=== PATIENT | male | born 1965 | race Caucasian/White ===

== ENCOUNTER 2017-01-10 09:55 | Inpatient (IN) | payer OTHER ==
[~2017-01-10] VITALS: Ht 182.9 cm; Wt 72.2 kg
[~2017-01-10 09:55] MED LIST: ASPIRIN EC325 MG PO; AZITHROMYCIN500 M1 PO; BACTRIM,SEPT1 TABLET PO; CLINDAMYCIN HC300 MG PO; FOLIC ACID0.4 MG PO; KEFLEX500 MG PO; LIPITOR80 MG PO; NAPROSYN500 MG PO; NORCO 5/3251 TABLET PO; PLETAL100 MG PO; PRAVASTATIN SOD80 MG PO; PSEUDOEPHEDRINE30 MG PO; RAMIPRIL2.5 MG PO; VICODIN 5-3001 EACH PO; VISINE A.C300 DROP/1 BOTH EYES; ZOFRAN ODT4 MG PO; ZOLOFT PO; ZOLOFT25 MG PO
[2017-01-10 10:51] LABS: HEMATOCRIT 49.6 % (38.0-50.0); MCH 30.6 PG (29.0-34.0); MCHC 31.9 G/DL (30.0-36.0); MCV 95.9 FL (86-99); PLATELET COUNT 281 K/uL (156-360); RBC DIS.WIDTH-CV 12.8 % (11.8-14.6); RBC DIS.WIDTH-SD 45.9 % (39-53); RED BLOOD COUNT 5.17 M/uL (4.00-5.50); WHITE BLOOD COUNT 14.8 K/uL (4.1-10.2)
[2017-01-10 11:02] LABS: CHLORIDE 104 mEq/L (99-109); POTASSIUM 3.8 mEq/L (3.7-5.4); SODIUM 140 mEq/L (136-147)
[2017-01-10 11:04] LABS: GLUCOSE 167 mg/dL (70-99)
[2017-01-10 11:06] LABS: ANION GAP 20 MEQ/L (2-14)
[2017-01-10 11:07] LABS: GFR ESTIMATE (CALCULATED) > 59 mL/min/
[2017-01-10 11:08] LABS: UREA NITROGEN (BUN) 21 mg/dL (9-23)
[2017-01-10 11:10] LABS: CREATINE KINASE 233 IU/L (1-294)
[2017-01-10 16:42] LABS: ADD MIUA? NO; BILIRUBIN NEGATIVE; BLOOD NEGATIVE; COLOR YELLOW ((YELLOW)); GLUCOSE (STRIP) NEGATIVE; KETONES 5; LEUKOCYTES NEGATIVE; NITRITE NEGATIVE; PROTEIN (STRIP) NEGATIVE; SPECIFIC GRAVITY 1.015 (1.000-1.030); UROBILINOGEN 0.2 MG/DL (0.2-1.0)
[2017-01-10 16:56] LABS: AMPHETAMINE NEGATIVE (500 ng/mL); BARBITURATES NEGATIVE (200 ng/mL); BENZODIAZEPINES PRESUMPTIVE POSITIVE (150 ng/mL); COCAINE NEGATIVE (150 ng/mL); INTERNAL CONTROLS VALID? YES; METHADONE NEGATIVE (200 ng/mL); METHAMPHETAMINE NEGATIVE (500 ng/mL); OPIATES (MORPHINE) NEGATIVE (100 ng/mL); OXYCODONE NEGATIVE (100 ng/mL); PHENCYCLIDINE NEGATIVE (25 ng/mL); PROPOXYPHENE NEGATIVE (300 ng/mL); THC CANNABINOIDS PRESUMPTIVE POSITIVE (50 ng/mL); TRICYCLIC ANTIDEPRESSANTS NEGATIVE (300 ng/mL)
[2017-01-10 16:57] LABS: ADD MEDTOX COMMENT Y
[2017-01-10 17:23] LABS: BENZODIAZEPINES, URINE SCREEN POSITIVE (200 ng/mL)
[2017-01-10 18:09] VITALS: BP 114/65
[2017-01-10 19:11] VITALS: BP 102/56
[2017-01-11] VITALS (7 sets, daily range): BP systolic 106–127; BP diastolic 56–69
[2017-01-11 06:01] LABS: HEMATOCRIT 42.3 % (38.0-50.0); MCH 31.4 PG (29.0-34.0); MCHC 33.8 G/DL (30.0-36.0); MEAN PLAT.VOLUME 9.8 uM^3 (9.0-12.4); PLATELET COUNT 210 K/uL (156-360); RBC DIS.WIDTH-SD 44.7 % (39-53); RED BLOOD COUNT 4.55 M/uL (4.00-5.50); WHITE BLOOD COUNT 10.2 K/uL (4.1-10.2)
[2017-01-11 10:14] LABS: ADD MIUA? NO; BILIRUBIN NEGATIVE; BLOOD NEGATIVE; COLOR YELLOW ((YELLOW)); GLUCOSE (STRIP) NEGATIVE; KETONES 5; LEUKOCYTES NEGATIVE; NITRITE NEGATIVE; PROTEIN (STRIP) NEGATIVE; SPECIFIC GRAVITY 1.016 (1.000-1.030); UCUL ADDED? NO; UROBILINOGEN 0.2 MG/DL (0.2-1.0)
[2017-01-12 00:09] VITALS: BP 121/64
[2017-01-12 04:20] VITALS: BP 113/93
[2017-01-12 07:36] VITALS: BP 104/57
[2017-01-12] MEDS ORDERED: [UNRECOGNIZED DRUG - OTHER] MC (09:58)
[2017-01-12] MEDS ORDERED: VALIUM SOLUTI1 MG/ML PR (09:58)
[2017-01-12] MEDS ORDERED: LEVETIRACETAM500 MG PO (09:58)
== END 2017-01-12 11:28 | disposition home or self-care (01) | DRG 101 ==
LOC: EME 09:55 → ENRESERV 14:13 → EDOF 14:21 → ENRESERV 14:34 → 5SOUTH 14:38 → EDOF 14:38 → ENRESERV 15:43 → 5SOUTH 17:31 → ENPENDDIS 01-12 → 5SOUTH 01-12 11:28
PROVIDERS: Emergency Medicine; Hospitalist; Physician Assistant
DX: G40.409 Other generalized epilepsy and epileptic syndromes, not intractable, without status epilepticus (principal); F05 Delirium due to known physiological condition; I69.320 Aphasia following cerebral infarction; W18.39XA Other fall on same level, initial encounter; E78.5 Hyperlipidemia, unspecified; S05.12XA Contusion of eyeball and orbital tissues, left eye, initial encounter; G93.89 Other specified disorders of brain; H55.00 Unspecified nystagmus; M48.02 Spinal stenosis, cervical region; M50.321 Other cervical disc degeneration at C4-C5 level; Z78.1 Physical restraint status; R45.1 Restlessness and agitation; Z79.82 Long term (current) use of aspirin; Y93.B3 Activity, free weights; Z82.49 Family history of ischemic heart disease and other diseases of the circulatory system; Z83.3 Family history of diabetes mellitus; Y92.39 Other specified sports and athletic area as the place of occurrence of the external cause
CPT/HCPCS: 70450; 70480; 70551; 71010; 72125; 80048; 80306 90; 81003; 82550; 83605; 84999; 85027; 87040; 87086; 95819; 99281; 99285; J1630; J1953; J2060; J2250; J2543; J3370; J7030; J7050